=== PATIENT | male | born 1950 | race African-American/Black ===

== ENCOUNTER 2024-07-24 12:48 | Outpatient (AMB) | payer MEDICARE, SELFPAY ==
--- NOTE | 2024-07-24 12:59 | MHC.OFFVIS ---
Vital Signs 07/24/24 13:00 Height 5 ft 9 in Weight 164 lb BMI 24.2 BP 133/63 Blood Pressure Location Lt brachial Position Sitting Respiration 16 Pulse 102 H Pulse Source Pulse Oximeter Pulse Oximetry (%) 99 Oxygen Delivery Method Room Air Intake Visit Reasons: Chronic back pain/urgent per Dr Peter Allergies No Known Allergies Allergy (Verified 07/24/24 13:01) Medication List - Last Reconciled 07/24/24 by Harriet Braswell LPN cyanocobalamin (vitamin B-12) 1,000 mcg PO DAILY dulaglutide (Trulicity) mg subcut gabapentin 600 mg PO BID lisinopril-hydrochlorothiazide 20-25 mg 1 tab PO DAILY metformin 1,000 mg PO BID tamsulosin 0.4 mg PO BEDTIME HPI Comments Details: Milan is very nice and very pleasant 73 years old gentleman, 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 He also reports numbness in bilateral lower extremities. He reports that this pain is result of diabetes currently he reports his hemoglobin A1c number between 6 and 7, and yet his diagnose with diabetic polyneuropathy. She reports him some oral medications help his pain minimally to moderately his pain is 10/10 all day long without interruption. In terms of tissue damage he reports his pain as shooting, stabbing, sharp, hot burning, tingling, stinging, hurting, aching, radiating, piercing, cold, freezing sensation. He is currently taking metformin gabapentin tamsulosin and lisinopril HCTZ. In the past he had lower back pain spinal fusion surgery. He had 3 surgeries on the back starting from 2005 and going on to 2007 and 3rd surgery in 2018 by Cayla Grijalva. He reports that there is residual left lower extremity footdrop after the surgery he received in 2005. He reports significant lower back pain related to postlaminectomy syndrome as well. He had mg performed at [facility] and MRI in 2023. He reports multiple sessions at physical therapy with [facility] and none of those were helping his pain. He received multiple injections to address she has lower back pain with [facility] some of those injections were effective for several weeks. However now they fade ineffectiveness. His past medical history significant for hypertension prostate problems and diabetes. Past surgical history described as above. Past social history he is unemployed currently, he continues to consider himself at the work force. He denies smoking cigarettes drinking alcohol he drinks 2 cups of coffee a day and he denies recreational drugs. [facility] Social History Patient Tobacco Use Status: Never used Tobacco Review of Systems Const All systems reviewed & are unremarkable except as noted in HPI and below Card Reports no additional complaints Resp Reports no additional complaints GI Reports no additional complaints Reports as per HPI Musc Reports as per HPI Neuro Reports as per HPI Psych Reports no additional complaints Endo Reports as per HPI Physical Exam Vital Signs: Last Vital Signs Pulse 102 H 07/24/24 13:00 Resp 16 07/24/24 13:00 BP 133/63 07/24/24 13:00 Pulse Ox 99 07/24/24 13:00 Oxygen Delivery Method Room Air 07/24/24 13:00 BMI result Body Mass Index 24.2 Const General: no acute distress, well developed, alert and awake Orientation/consciousness: patient oriented x3 Resp Effort & Inspection: normal respiratory effort, able to speak in complete sentences, normal respiratory pattern, no audible wheezes, no cough, no grunting and not labored Cardio Other: No lower extremity edema Jugular venous distension: no JVD GI Inspection: Yes normal to inspection Back/Spine/Pelvis Other: On inspection there is a scar projection of L3, L4, L5 and probably S1 midline area the patient is back the scar is very well-healed. Skin Other: callused feet, dry skin bilateral lower extremities, reports numbness in bilateral lower extremities absence of the sensation, painful pins and needle sensation. Neuro General: patient oriented x3, gait normal, tone normal, moves all extremities and Normal light touch and pain sensation Motor exam (neuro): 5/5 motor strength present throughout Assessment & Plan Assessment & Plan (1) Diabetic polyneuropathy: Code(s): E11.42 - Type 2 diabetes mellitus with diabetic polyneuropathy Category: Medical (2) Postlaminectomy syndrome: Code(s): M96.1 - Postlaminectomy syndrome, not elsewhere classified Category: Medical (3) Chronic pain syndrome: Code(s): G89.4 - Chronic pain syndrome Category: Medical Plan I discussed with the patient administration of Nevro spinal cord stimulator. After that we will go for the trial. He would need to understand that because of the presence of the postlaminectomy syndrome it is not guaranteed that the spinal cord stimulation will help his pain in the back, it will be designed only to help pain in bilateral lower extremities. Nevertheless the desired outcome would be if both of the pains will be covered with 1 device. He needs to go for psychological evaluation 1st. After he will past psychological evaluation we will schedule him for the trial of Nevro SCS. Patient Instructions: I here by testify that I spent 45 minutes in conversation with this patient as well as planning his care and organizing this note. Coding Level of Care Code New Pt Level 4 (17679) Diagnoses Diabetic polyneuropathy E11.42 Postlaminectomy syndrome M96.1 Chronic pain syndrome G89.4
[2024-07-24 13:00] VITALS: BP 133/63; PULSE 102; RESP 16; O2SAT 99; BMI 24.2
--- OUTSIDE RECORDS SUMMARY | 2024-07-24 14:34 | XMS_ITS | Continuity of Care Document ---
Author Organization [facility] Address [address] [place] [address]- Care Team Providers Care Amortization Schedule Clerk Name Role Phone Skyla ORELLANA, Ben Primary Care Physician [place] [facility] [place] [facility] [address], [place] [address] Attending Physician: Admtr, Ar8 Admitting Physician: Admtr, Ar8 Referring Physician: Admtr, Ar8 Encounter Type: Triage Allergies, Adverse Reactions, Alerts No Known Allergies Immunizations Given and Recorded Vaccine Date Status Refusal Reason influenza virus vaccine, inactivated 1 04/24/24 Gi rm influenza virus vaccine, inactivated 2 05/10/23 Gi rm influenza virus vaccine, inactivated 05/15/20 Kevin rded influenza virus vaccine, inactivated 08/04/19 Kevin rded influenza virus vaccine, inactivated 04/30/18 Kevin rded influenza virus vaccine, inactivated 07/24/17 Kevin rded influenza virus vaccine, inactivated 05/13/15 Kevin rded influenza virus vaccine, inactivated 07/13/13 Kevin rded influenza virus vaccine, inactivated 3 05/20/09 Gi rm SARS-CoV-2 (COVID-19) mRNA-1273 vaccine 07/13/21 R ecorded SARS-CoV-2 (COVID-19) mRNA-1273 vaccine 01/22/21 R ecorded SARS-CoV-2 (COVID-19) mRNA-1273 vaccine 12/24/20 R ecorded pneumococcal 23-valent vaccine 07/28/17 Recorded pneumococcal 23-valent vaccine 4 05/20/09 Given pneumococcal 23-valent vaccine 05/19/03 Recorded pneumococcal 13-valent vaccine 03/08/16 Recorded tetanus/diphtheria/pertussis, acel(Tdap) 03/08/16 Recorded Zoster Vaccine Live 02/28/14 Recorded Rabies Immune Globulin, Human 07/04/13 Given rabies vaccine, human diploid cell 07/04/13 Given tetanus-diphtheria toxoids (Td) 07/04/13 Given 1Result Comment: [id number] given w/out incident 2Result Comment: [facility] [id number] 3Result Comment: lot number [id number] 4Result Comment: lot number [id number] Medications Blood Pressure Monitor Blood Pressure Monitor, See Instructions, # 1 each, Refills 0, Tot. Refills 0, Maintenance, DX Hypertension I10, 05/28/23 11:15:00 AM EST, Supply Start Date: 05/28/23 Status: Ordered Quantity: 1.0 Unit: each Repeat number: 1 FreeStyle Lite Strips FreeStyle Lite Strips, 0 Refills, Maintenance, 01/18/24 8:33:00 AM EDT Start Date: 01/18/24 Status: Ordered Repeat number: 1 gabapentin 600 mg oral tablet 1 tablet = 600 mg, By Mouth, 2 times a day, # 180 tablet, 1 Refills, Maintenance, 12/04/23 11:15:00 AM EDT, Tablet, [facility], Partial fill upon patient request if the prescription is for a schedule II opioid drug., 175.9, cm, 12/04/23 10:51:00 EDT, Height, 75, kg, 12/04/23 10:51 :00 EDT, Dry Weight Start Date: 12/04/23 Status: Ordered Quantity: 180.0 Unit: tablet Repeat number: 2 hydrochlorothiazide-lisinopril 25 mg-20 mg oral tablet 1 tablet, By Mouth, Daily, # 90 tablet, 1 Refills, Maintenance, 04/16/24 5:10:00 PM EDT, [facility], 90, TAKE ONE TABLET EVERY DAY, 175.9, cm, 04/02/24 14:15:00 EDT, Height, 75, kg, 12/04/23 10:51:00 EDT, Dry Weight Start Date: 04/16/24 Status: Ordered Quantity: 90.0 Unit: tablet Repeat number: 1 Lantus Solostar Pen 100 units/mL subcutaneous solution = 34 units, Subcutaneous Injection, 2 times a day, # 60 mL, 1 Refills, Maintenance, 05/10/23 1:40:00PM EST, Injection, [facility], Partial fill upon patient request if the prescription is for a schedule II opioid drug., 175, cm, 05/10/23 13:06:00 EST, Height, 79.9, kg, 239:30:00 EDT, Dry Weight Start Date: 05/10/23 Status: Ordered Quantity: 60.0 Unit: mL Repeat number: 2 metFORMIN 1000 mg oral tablet 1 tablet = 1,000 mg, By Mouth, 2 times a day, # 180 tablet, 1 Refills, Maintenance, 05/10/23 1:40:00PM EST, Tablet, [facility], Partial fill upon patient request if the prescription is for a schedule II opioid drug., 175, cm, 05/10/23 13:06:00 EST, Height, 79.9, kg, 01/11/23 9:30:00 EDT, Dry Weight Start Date: 05/10/23 Status: Ordered Quantity: 180.0 Unit: tablet Repeat number: 2 tamsulosin 0.4 mg oral capsule 1, capsule, By Mouth, Daily, # 90 capsule, Refills 1, Maintenance, 06/07/24 12:40:00 PM EST, Route to Pharmacy Electronically, [facility], 175.9, cm, 04/24/24 14:28:00 EDT, Height, 75, kg, 04/24/24 14:28:00 EDT, Dry Weight Start Date: 06/07/24 Status: Ordered Quantity: 90.0 Unit: capsule Repeat number: 1 TRUEplus Lancets 33 gauge TRUEplus Lancets 33 gauge, TEST BLOOD SUGAR TWICE DAILY AND NEEDED Start Date: 01/18/24 Status: Ordered Repeat number: 1 Trulicity Pen 1.5 mg/0.5 mL subcutaneous solution See Instructions, INJECT ONE PEN (=1.5MG) SUBCUTANEOUSLY ONCE A WEEK DIRECTED, # 6 mL, 0 Refills, Maintenance, 05/20/24 7:58:00 AM EST, [facility], 175.9, cm, 04/24/24 14:28:00 EDT, Height, 75, kg, 04/24/24 14:28:00 EDT, Dry Weight Start Date: 05/20/24 Status: Ordered Quantity: 6.0 Unit: mL Repeat number: 1 Vitamin B12 1000 mcg oral tablet 1 tablet = 1,000 mcg, By Mouth, Daily, # 90 tablet, 3 Refills, Maintenance, 05/10/23 1:40:00 PM EST,Tablet, [facility], Partial fill upon patient request if the prescription is for a schedule II opioid drug., 175, cm, 05/10/23 13:06:00 EST, Height, 79.9, kg, 01/11/23 9:30:00 EDT, Dry Weight Start Date: 05/10/23 Status: Ordered Quantity: 90.0 Unit: tablet Repeat number: 4 Vitamin D3 1000 intl units oral tablet 1 tablet = 25 mcg, By Mouth, Daily, # 90 tablet, 1 Refills, Maintenance, 05/10/23 1:40:00 PM EST, Tablet, [facility], Partial fill upon patient request if the prescription is for a schedule II opioid drug., 175, cm, 05/10/23 13:06:00 EST, Height, 79.9, kg, 01/11/23 9:30:00 EDT, Dry Weight Start Date: 05/10/23 Status: Ordered Quantity: 90.0 Unit: tablet Repeat number: 2 Problem List Condition Confirmation Course Effective Dates Status Health St atus Informant Diabetes mellitus with neuropathy Confirmed Active Glaucoma Confirmed Active Hypertension Confirmed Active Low back pain Confirmed Active Neuropathy Confirmed Active Elevated PSA; did not have biopsy as of 08/26 Confirmed Active Social History Social History Type Response Smoking Status Never smoker; Tobacc o user in household: No entered on: 02/27/17 Sex Male Sex Representation Male (finding) Radiology * Event Display: MRI Spine, Non- Authored Date: Patient Care team information Care Team Personnel Name: Ben Crum MD Position: [facility] Physician - Primary Care Member Role: PCP Address: [address] [place] [address] Telecom: Name: Quique Hermosillo RN Position: [facility] RN Member Role: Primary Care Nurse Care Team Related Persons Name: NO, ONE Name: UNKNOWN, TOBY Insurance Providers Guarantor name: [facility] [facility] Information #: 1 Payer: NA Member Number: NA Policy Number: NA Group Number: NA
--- OUTSIDE RECORDS SUMMARY | 2024-07-24 14:34 | XMS_ITS | Continuity of Care Document ---
Author Organization [facility] Address [address] [place] [address]- Care Team Providers Care Stacker Name Role Phone Ben Crum MD Primary Care Physician [place] [facility] [place]/03/24 [facility] [address] [place], [place] [address] Attending Physician: Ben Crum MD Encounter Type: Pre Office Visit Allergies, Adverse Reactions, Alerts No Known Allergies [...] influenza virus vaccine, inactivated 3 05/20/09 Gi mr SARS-CoV-2 (COVID-19) mRNA-1273 vaccine 07/13/21 R ecorded [...] tetanus-diphtheria toxoids (Td) 07/04/13 Given 1Result Comment: [id number] given w/out incident 2Result Comment: [facility] [id number] 3Result Comment: lot number [id number] 4Result Comment: lot number [id number] Medications Blood [...] Refills, Maintenance, 12/04/23 11:15:00 AM EDT, Tablet, [facility], Partial fill upon [...] 1 Refills, Maintenance, 04/16/24 5:10:00 PM EDT, [facility], 90, TAKE ONE TABLET EVERY DAY, 175.9, cm, 04/02/24 14:15:00 EDT, Height, 75, kg, 12/04/23 10:51:00 EDT, Dry Weight Start Date: 04/16/24 Status: Ordered Quantity: 90.0 Unit: tablet Repeat number: 1 Lantus Solostar Pen 100 units/mL subcutaneous solution = 34 units, Subcutaneous Injection, 2 times a day, # 60 mL, 1 Refills, Maintenance, 05/10/23 1:40:00PM EST, Injection, [facility], Partial fill upon patient request if the prescription is for a schedule II opioid drug., 175, cm, 05/10/23 13:06:00 EST, Height, 79.9, kg, :30:00 EDT, Dry Weight Start Date: 05/10/23 Status: Ordered Quantity: 60.0 Unit: mL Repeat number: 2 metFORMIN 1000 mg oral tablet 1 tablet = 1,000 mg, By Mouth, 2 times a day, # 180 tablet, 1 Refills, Maintenance, 05/10/23 1:40:00PM EST, Tablet, [facility], Partial fill upon [...] 12:40:00 PM EST, Route to Pharmacy Electronically, [facility], 175.9, cm, 04/24/24 [...] 0 Refills, Maintenance, 05/20/24 7:58:00 AM EST, [facility], 175.9, cm, 04/24/24 14:28:00 EDT, Height, 75, kg, 04/24/24 14:28:00 EDT, Dry Weight Start Date: 05/20/24 Status: Ordered Quantity: 6.0 Unit: mL Repeat number: 1 Vitamin B12 1000 mcg oral tablet 1 tablet = 1,000 mcg, By Mouth, Daily, # 90 tablet, 3 Refills, Maintenance, 05/10/23 1:40:00 PM EST,Tablet, [facility], Partial fill upon [...] Refills, Maintenance, 05/10/23 1:40:00 PM EST, Tablet, [facility], Partial fill upon [...] 02/27/17 Sex Male Sex Representation Male (finding) Patient Care team information Care Team Personnel Name: Ben Crum MD Position: [facility] Physician - Primary Care Member Role: PCP Address: [address] [place] [address] Telecom: Name: Quique Hermosillo RN Position: S RN Member Role: Primary Care Nurse Care Team Related Persons Name: NO, ONE Name: UNKNOWN, TOBY Insurance Providers Guarantor name: [facility] Health Plan Information #: 1 Payer: SANTI Member Number: [id number] Policy Number: SANTI Group Number: [id number] Health Plan Information #: 2 Payer: [employer] MED[employer] ADV HMO Member Number: [id number] Policy Number: SANTI Group Number: NA
== END 2024-07-24 13:39 | disposition home or self-care (01) ==
PROVIDERS: PCP Internal Medicine; Referring Provider Internal Medicine; Visit Provider Anesthesiology
DX: E11.42 Type 2 diabetes mellitus with diabetic polyneuropathy (principal); M96.1 Postlaminectomy syndrome, not elsewhere classified; G89.4 Chronic pain syndrome
CPT/HCPCS: 99204

== ENCOUNTER → 2024-07-24 12:48 | Outpatient (BNVA) | payer MEDICARE, SELFPAY | PROVIDERS: PCP Internal Medicine; Referring Provider Internal Medicine; Visit Provider Anesthesiology | DX: M96.1 Postlaminectomy syndrome, not elsewhere classified (principal); G89.4 Chronic pain syndrome; E11.42 Type 2 diabetes mellitus with diabetic polyneuropathy | CPT/HCPCS: 99202 ==

== ENCOUNTER 2024-08-12 13:51 | Outpatient (AMB) | payer MEDICARE, SELFPAY ==
--- NOTE | 2024-08-12 13:53 | MHC.OFFVIS ---
Vital Signs 08/12/24 13:54 Height 5 ft 9 in Weight 160 lb BMI 23.6 BP 133/86 Blood Pressure Location Lt brachial Position Sitting Respiration 16 Pulse 106 H Pulse Source Pulse Oximeter Pulse Oximetry (%) 98 Oxygen Delivery Method Room Air Intake Visit Reasons: 3 Weeks Follow up Top And Seat Cover Fitter Required: No Allergies No Known Allergies Allergy (Verified 08/12/24 13:56) Medication List - Last Reconciled 08/12/24 by Harriet Braswell LPN cyanocobalamin (vitamin B-12) 1,000 mcg PO DAILY dulaglutide (Trulicity) mg subcut gabapentin 600 mg PO BID lisinopril-hydrochlorothiazide 20-25 mg 1 tab PO DAILY metformin 1,000 mg PO BID tamsulosin 0.4 mg PO BEDTIME HPI Comments Details: Milan is back in my office to discuss spinal cord stimulator. We received [employer] point evaluate with approval to perform the procedure. I will schedule him for the trial of Nevro SCS. We discussed postoperative limitations, we discussed the procedure. Patient asked multiple questions. Those were answered to his satisfaction. I will schedule him for trial of Nevro SCS. 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 He also reports numbness in bilateral lower extremities. He reports that this pain is result of diabetes currently he reports his hemoglobin A1c number between 6 and 7, and yet his diagnose with diabetic polyneuropathy. She reports him some oral medications help his pain minimally to moderately his pain is 10/10 all day long without interruption. currently taking metformin gabapentin tamsulosin and lisinopril HCTZ. In the past he had lower back pain spinal fusion surgery. He had 3 surgeries on the back starting from 2005 and going on to 2007 and 3rd surgery in 2018 by Cayla Grijalva. He reports that there is residual left lower extremity footdrop after the surgery he received in 2005. He reports significant lower back pain related to postlaminectomy syndrome as well. He had mg performed at [facility] and MRI in 2023. He reports multiple sessions at physical therapy with [facility] and none of those were helping his pain. [facility] Social History Patient Tobacco Use Status: Never used Tobacco Review of Systems Const All systems reviewed & are unremarkable except as noted in HPI and below Physical Exam Vital Signs: Last Vital Signs Pulse 106 H 08/12/24 13:54 Resp 16 08/12/24 13:54 BP 133/86 08/12/24 13:54 Pulse Ox 98 08/12/24 13:54 Oxygen Delivery Method Room Air 08/12/24 13:54 BMI result Body Mass Index 23.6 Const General: no acute distress, well developed, alert and awake Orientation/consciousness: patient oriented x3 Resp Effort & Inspection: normal respiratory effort, able to speak in complete sentences, normal respiratory pattern, no audible wheezes, no cough, no grunting and not labored Cardio Other: No lower extremity edema Jugular venous distension: no JVD GI Inspection: Yes normal to inspection Back/Spine/Pelvis Other: On inspection there is a scar projection of L3, L4, L5 and probably S1 midline area the patient is back the scar is very well-healed. Skin Other: callused feet, dry skin bilateral lower extremities, reports numbness in bilateral lower extremities absence of the sensation, painful pins and needle sensation. Neuro General: patient oriented x3, gait normal, tone normal, moves all extremities and Normal light touch and pain sensation Motor exam (neuro): 5/5 motor strength present throughout Assessment & Plan Assessment & Plan (1) Diabetic polyneuropathy: Code(s): E11.42 - Type 2 diabetes mellitus with diabetic polyneuropathy Category: Medical (2) Postlaminectomy syndrome: Code(s): M96.1 - Postlaminectomy syndrome, not elsewhere classified Category: Medical (3) Chronic pain syndrome: Code(s): G89.4 - Chronic pain syndrome Category: Medical Plan [facility] psychology approved him for neuromodulation. I will schedule him for a trial Nevro spinal cord stimulator. Risks and benefits were explained to the patient. He was asking multiple questions. Hygiene limitations were explained to the patient. Ability to perform household duties and work were explained to the patient. I will see the patient for the trial. Coding Level of Care Code Est Pt Level 3 (94279) Diagnoses Diabetic polyneuropathy E11.42 Postlaminectomy syndrome M96.1 Chronic pain syndrome G89.4
[2024-08-12 13:54] VITALS: BP 133/86; PULSE 106; RESP 16; O2SAT 98; BMI 23.6
== END 2024-08-12 14:15 | disposition home or self-care (01) ==
PROVIDERS: PCP Internal Medicine; Visit Provider Anesthesiology
DX: E11.42 Type 2 diabetes mellitus with diabetic polyneuropathy (principal); M96.1 Postlaminectomy syndrome, not elsewhere classified; G89.4 Chronic pain syndrome
CPT/HCPCS: 99213

== ENCOUNTER → 2024-08-12 13:51 | Outpatient (BNVA) | payer MEDICARE, SELFPAY | PROVIDERS: PCP Internal Medicine; Visit Provider Anesthesiology | DX: E11.42 Type 2 diabetes mellitus with diabetic polyneuropathy (principal); M96.1 Postlaminectomy syndrome, not elsewhere classified; G89.4 Chronic pain syndrome | CPT/HCPCS: 99212 ==

== ENCOUNTER 2024-10-25 07:05 | Day surgery (SDC) | payer MEDICARE, SELFPAY ==
[2024-10-23 08:51] VITALS: BMI 23.6
--- OUTSIDE RECORDS SUMMARY | 2024-10-23 12:42 | XMS_ITS | Encounter Summary ---
Author Organization [facility] Address [address] [place] [address] Care Team Providers Care Automobile Repair Service Estimator Name Role Phone Ben Crum MD Primary Care Provider [phone] Encounter Details Date Type Department Care Team (Late Contact Info) Description 05/23/2024 Lab Requisition [facility] - Main Lab [address] [facility] [place] [address] Alessio Hernandez MD [address] [place] [id number] Social History Tobacco Use Types Packs/Day Years Used Date Smoking Tobacco: Never Smokeless Tobacco: Never Alcohol Use Standard Drinks/Week Comments No 0 (1 standard drink = 0.6 oz pur e alcohol) Sex and Gender Information Value Date Recorded Sex Assigned at Not on file Legal Sex Male 10:14 AM EST Gender Identity Not on file Sexual Orientation Not on file documented as of this encounter Plan of Treatment Upcoming Encounters Date Type Department Care Team (Late Contact Info) Description 11/22/2024 7:45 AM EDT Office Visit Adult Medicine [facility] [place] [place] [address] [place] [phone] Jazmín Espinal MD [address] [place], [place] documented as of this encounter Visit Diagnoses Not on filedocumented in this encounter Care Teams Automobile Repair Service Estimator Relationship Specialty Start Date End Date Ben Crum MD [address] [place] [id number] PCP - General Internal Medicine 09/12/24 documented as of this encounter
--- OUTSIDE RECORDS SUMMARY | 2024-10-23 12:42 | XMS_ITS | Clinical Summary ---
Author Organization [address] Address [address] [place] [phone] Phone Care Team Providers Care Paperhanger Contractor Name Role Phone Ben Crum MD Primary Care Provider [phone] Allergies No known active allergies Medications blood sugar diagnostic (FreeStyle Lite Strips) test strip TEST BLOOD SUGAR TWICE DAILY 05/24/20 Active lancets 33 gauge misc TEST BLOOD SUGAR TWICE DAILY AND NEEDED 05/24/20 23 Active insulin glargine (Lantus Solostar U-100 Insulin) 100 unit/mL (3 mL) injection pen INJECT 34 UNITS SUBCUTANEOUSLY TWICE DAILY 12/07/19 23 Active metFORMIN (GLUCOPHAGE) 1,000 mg tablet Take 1 tablet (1,000 mg total) by mouth 2 (two) times a day with meals. 07/25/19 23 Active cyanocobalamin (VITAMIN B-12) 1,000 mcg tablet Take 1 tablet (1,000 mcg total) by mouth 1 (one) time each day. 07/13/19 23 Active lisinopril-hyd roCHLOROthiazi de (PRINZIDE,ZEST ORETIC) 20-12.5 mg per tablet Take 1 tablet by mouth 1 (one) time each day. 07/11/19 23 Active blood-glucose meter kit Use bid and prn dx: E11.49 07/01/20 21 Active gabapentin (NEURONTIN) 600 mg tablet Take 1 tablet (600 mg total) by mouth 2 (two) times a day. 60 each 2 05/15/20 24 Active pen needle, diabetic (UltiCare Pen Needle) 32 gauge x 5/32 needle Inject under the skin at bedtime. 100 each 1 05/15/20 24 Active tamsulosin (FLOMAX) 0.4 mg 24 hr capsule Take 1 capsule (0.4 mg total) by mouth 1 (one) time each day with breakfast. Capsules should be taken 30 minutes following the same meal each day. Active acetaminophen (TYLENOL 8 HOUR) 650 mg 8 hr tablet Take 1 Tablet by mouth every 8 hours as needed for Pain for up to 14 days. 03/28/20 23 025 Discontin ued(Thera py completed ) ibuprofen (ADVIL,MOTRIN) 800 mg tablet Take 1 Tablet by mouth 2 times daily for 14 days. 03/28/20 025 Discontin ued(Thera py completed ) diclofenac (VOLTAREN) 1 % topical gel Apply 2 g topically 4 times daily as needed (right wrist pain). 08/15/19 025 Discontin ued(Thera py completed ) cholecalcifero l (VITAMIN D-3) 50 mcg (2,000 unit) capsule Take 1 capsule (2,000 Units total) by mouth 1 (one) time each day. 07/13/19 025 Discontin ued(Thera py completed ) Active Problems Problem Noted Date Diagnosed Date Prostate cancer ([facility] V24, [facility] V28) 10/10 Cancer Staging:Clinical:Stage IIIA(cT2c, cN0, cM0, PSA: 20, Grade Group: 3) - Signed by Ida Novoa MD on 10/10/2024 Vitamin B 12 deficiency 04/05/2024 High prostate specific antigen (PSA) 04/05/2024 Neuropathy 04/05/2024 Foot drop, bilateral 04/05/2024 Nontraumatic subluxation of extensor tendon at metacarpophalangeal joint of right hand 05/10/2023 Left hand weakness 12/14/2022 Numbness and tingling 12/14/2022 Vitamin D deficiency 10/21/2021 Ulnar neuropathy at elbow, right 10/10/2018 Ulnar neuropathy at elbow, left 10/10/2018 Radial tunnel syndrome, left 10/10/2018 Right carpal tunnel syndrome 07/12/2018 Overview (04/05/2024): left Osteoarthritis 07/12/2018 Overview (04/05/2024): Spine Polyneuropathy 07/12/2018 Low back pain 01/22/2018 Microalbuminuria 01/30/2017 Diabetes mellitus with neuro uday ([facility] V24, [facility] V28) 11/06/2013 Glaucoma 11/06/2013 Hypertension 10/09/2013 Encounters Date Type Department Care Team Description 10/15/2024 Telephone [facility] Radiation Oncology [address] [place] [phone] Karo Begum MA 10/10/2024 1:19 PM EDT - 10/10/2024 11:59 PM EDT Hospital Encounter [facility] Radiation Oncology [address] [place] [phone] Discharge Disposition: Home or Self Care 10/10/2024 1:15 PM EDT - 10/10/2024 11:59 PM EDT Hospital Encounter [facility] Radiation Oncology [address] [place] [phone] Ida Novoa MD Prostate cancer ([facility] V24, [facility] V28) Discharge Disposition: Home or Self Care 10/03/2024 Telephone [facility] Radiation Oncology [address] [place] [phone] Liliya Ponce MA 09/12/2024 Telephone [facility] Radiation Oncology [address] [place] [phone] Liliya Ponce MD 08/16/2024 11:00 AM EST - 08/16/2024 11:59 PM EST Hospital Encounter [facility] PET Scan [address] [place] [phone] Malignant neoplasm of prostate ([facility] V24, [facility] V28) Discharge Disposition: Home or Self Care from Last 3 Months Immunizations Name Administration Dates Next Due Influenza trivalent, 0.5mL ( Fluzone High-dose) 65yo and older 05/15/2020 Influenza trivalent, with pr eservative (Fluzone; Afluria) 6mo and older 05/13/2015 Influenza, Unspecified 05/10/2023,2019,04/30/2018,07/24,04/02/2014 Moderna SARS-CoV-2 COVID-19, mRNA, LNP-S, preservative free 07/13/2021,01/22/2021,12/24/2020 Pneumococcal conjugate 13 va lent (Prevnar 13, PCV13) 2mo and older 03/08/2016 Pneumococcal polysaccharide 23 valent (Pneumovax 23) 2yo and older 07/28/2017,05/19/2003 Pneumococcal, Unspecified 05/20/2009 Rabies, Unspecified 07/04/2013 Td Tetanus diptheria (Tdvax) 7yo and older 07/04/2013 Tdap Tetanus diptheria acell ular pertussis (Boostrix; Adacel) 7yo and older 03/08/2016 Zoster Live 02/28/2014 Surgical History Surgery Date Site/Laterality Comments BACK SURGERY 08/2005 PROCEDURE: HISTORICAL BACK SURGERY; COMMENT: Discectomy L4-L5 BACK SURGERY 05/07/2018 PROCEDURE: HISTORICAL BACK SURGERY; COMMENT: Exploration and revision of fusion L4-5; L3-4 decompression; L3-4 and right L4-5 posterior lateral arthrodesis; L3-L5 segmental fixation - Dr. Irizarry BACK SURGERY 02/06/2017 PROCEDURE: HISTORICAL BACK SURGERY; COMMENT: Laminectomy L4-L5, Laminoforaminotomy L3-L4 left, Posterior instumentation L4-L5, Arthrodesis Medical History Medical History Date Comments HTN (hypertension) 10/09/2013 DX:HTN (hyper tension) Hyperlipidemia DX:Hyperlipidemi a Glaucoma 11/06/2013 DX:Glaucoma Osteoarthritis 07/12/2018 DX:Osteoarthriti s; COMMENT: Spine DM (diabetes mellitus), type 2 with neurological complications ([facility] V24, [facility] V28) 11/06/2013 DX:DM (diabetes mellitus), t ype 2 with neurological complications ([facility]) Microalbuminuria 01/30/2017 DX:Microalbumin uria Polyneuropathy 07/12/2018 DX:Polyneuropath y Carpal tunnel syndrome 07/12/2018 DX:Carpal tunnel syndrome; COMMENT: left Vitamin B 12 deficiency DX:Vitam in B 12 deficiency Vitamin D deficiency DX:Vitamin D deficiency Cancer ([facility] V24, [facility] V28) Prostate cancer ([facility] V24 , [facility] V28) Family History Medical History Relation Name Comments No Known Problems Brother No Known Problems Father No Known Problems Maternal Grandfather No Known Problems Maternal Grandmother No Known Problems Mother No Known Problems Paternal Grandfather No Known Problems Paternal Grandmother Diabetes Sister Autoimmune disease Neg Hx Breast cancer Neg Hx Colon cancer Neg Hx Coronary artery disease Neg Hx Heart attack Neg Hx Heart failure Neg Hx Hyperlipidemia Neg Hx Hypertension Neg Hx Mental illness Neg Hx Prostate cancer Neg Hx Sleep apnea Neg Hx Thyroid disease Neg Hx Relation Name Status Comments Brother Father Maternal Grandfather Maternal Grandmother Mother Paternal Grandfather Paternal Grandmother Sister Social History Tobacco Use Types Packs/Day Years Used Date Smoking Tobacco: Never Smokeless Tobacco: Never Alcohol Use Standard Drinks/Week Comments Yes 1 (1 standard drink = 0.6 oz pur e alcohol) occasional Sex and Gender Information Value Date Recorded Sex Assigned at Not on file Legal Sex Male 10:14 AM EST Gender Identity Not on file Sexual Orientation Not on file 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 Not on file Not on f ile Obstetrics History Last Filed Vital Signs Vital Sign Reading Time Taken Comments Blood Pressure 118/68 10/10/2024 2:10 PM EDT Pulse 70 10/10/2024 2:10 PM EDT Temperature 36.1 ??C (96.9 ??F) 10/10/2024 2:10 PM ED T Respiratory Rate 16 10/10/2024 2:10 PM EDT Oxygen Saturation 100% 10/10/2024 2:10 PM EDT Inhaled Oxygen Concentration - - Weight 75.5 kg (166 lb 6.4 oz) 10/10/2024 2:10 P M EDT Height 175.3 cm (5' 9 ) 10/10/2024 2:10 PM EDT Body Mass Index 24.57 10/10/2024 2:10 PM EDT Plan of Treatment Upcoming Encounters Date Type Department Care Team ([facility] st Contact Info) Description 11/22/2024 7:45 AM EDT Office Visit Adult Medicine [address] [place] [phone] Jazmín Espinal MD [address] [facility] [address] Health Maintenance Due Date Last Done Comments Diabetes: Annual Foot Exam 1960 Diabetes: Annual Retina Eye Exam 1960 Zoster Vaccines (1 of 2) 04/25/2014 02/28/2014 Colorectal Cancer Screening: Stool Based Tests (FOBT/FIT) 06/06/2022 Depression Screening 06/06/2022 Falls Risk Assessment 06/06/2022 Social Influencers of Health Screening 06/06/2022 Diabetes: Annual Urine Albumin-Creatinine Ratio (uACR) 06/09/2022 05/15/2020 Diabetes: Annual GFR (Glomerular Filtration Rate) 10/19/2022 10/19/2021 Hypertension/CHF/CAD Annual BMP Blood Test 10/19/2022 10/19/2021 Diabetes: Blood Sugar Control Test (HGBA1C) 01/10/2023 07/13/2022 COVID-19 Vaccine ( season) 2024 07/13/2021, 01/22/2021, 12/24/2020 RSV Immunization Adult Patients (1 - 1-dose 75+ series) 05/15/2025 Postponed from 2024 (Patient Refused) DTaP,Tdap,and Td Vaccines (3 - Td or Tdap) 03/08/2026 03/08/2016, 07/04/2013 Cholesterol Screening (Lipid Panel) 10/19/2026 10/19/2021 Hepatitis C Screening Completed 10/25/2013 Pneumococcal Vaccine: 50+ Years Completed 07/28/2017, 03/08/2016, 05/20/2009, Additional history exists Influenza Vaccine Completed 04/24/2024, , 05/15/2020, Additional history exists HIB Vaccines Aged Out No longer eligi ble based on patient's age to complete this topic HPV Vaccines Aged Out No longer eligi ble based on patient's age to complete this topic Hepatitis A Vaccines Aged Out No long er eligible based on patient's age to complete this topic Hepatitis B Vaccines Aged Out No long er eligible based on patient's age to complete this topic IPV Vaccines Aged Out No longer eligi ble based on patient's age to complete this topic MMR Vaccines Aged Out No longer eligi ble based on patient's age to complete this topic Meningococcal ACWY Vaccine Aged Out N o longer eligible based on patient's age to complete this topic Meningococcal B Vaccine Aged Out No l onger eligible based on patient's age to complete this topic RSV Immunization Patients Under 20 months Aged Out No longer eligible based on patient's age to complete this topic Varicella Vaccines Aged Out No longer eligible based on patient's age to complete this topic Procedures Procedure Name Priority Date/Time Associated Diagnosis Comments PROSTATE SPECIFIC ANTIGEN DIAGNOSTIC Routine 10/10/2024 3:35 PM EDT Prostate cancer ([facility] V24, [facility] V28) PET CT SKULL TO MID THIGH INITIAL Routine 08/16/2024 12:20 PM EST Malignant neoplasm of prostate ([facility] V24, [facility] V28) HEMOGLOBIN A1C Routine 07/13/2022 ANNUAL BMP BLOOD TEST Routine 10/19/2021 LIPID PANEL Routine 10/19/2021 URINE ALBUMIN CREATININE RATIO Routine 05/15/2020 HEPATITIS C SCREENING Routine 10/25/2013 from Last 3 Months or Most Recently Relevant to Health Maintenance Results * (ABNORMAL) Prostate specific antigen diagnostic (10/10/2024 3:35 PM EDT) PSA 16.79(H) 0.00 - 4.00 ng/mL LAB CHEMISTRY METHOD 10/10/2024 6:09 PM EDT [facility] Blood Venous blood specimen / Unknown Venipuncture / Unknown 10/10/2024 3:35 PM EDT 10/10/2024 4:39 PM EDT Narrative [facility] - 10/10/2024 6:09 PM EDT The Siemens Advia Centaur Chemiluminescent Immunoassay is used. Results obtained with different assay methods or kits cannot be used interchangeably. Results cannot be interpreted as absolute evidence of the presence or absence of malignant disease. us Ida Novoa MD LAB BLOOD ORDERABLES Final R esult [facility] [address] [place] [address], * PET CT Skull to Mid Thigh Initial (08/16/2024 12:20 PM EST) Anatomical Region Laterality Modality Body Radiographic Zoey ging 08/20/2024 6:16 AM EST Impressions 08/20/2024 7:06 AM EST 1. ??Focal activity within the prostate gland in keeping with biopsy-proven prostate carcinoma 2. ??Nonspecific activity in the left retroperitoneum favor to represent vessels/ganglion and less likely nonenlarged left-sided retroperitoneal lymph node -------- FINAL REPORT -------- Dictated By: Kristine Delacruz Dictated Date: 08/20/2024 06:16 ET Assigned Physician: Kristine Delacruz Reviewed and Electronically Signed By: Kristine Delacruz Signed Date: 08/20/2024 07:06 ET Workstation ID: [id number] Transcribed By: Self Edit Transcribed Date: 08/20/2024 06:16 ET Narrative 08/20/2024 7:06 AM EST HISTORY: Prostate carcinoma, initial treatment. PRIOR IMAGING STUDIES: None RADIOPHARMACEUTICAL: 9.6 mCi F-18 piflufolastat IV INJECTION SITE: Left antecubital INJECTION TIME TO SCAN TIME: 66 min PROCEDURE: Routine body PET-CT imaging performed from the base of the skull to the upper thighs and reconstructed in axial, coronal, sagittal planes at the computer workstation with fused data from both the PET imaging study and attenuation correction CT study. Please note, CT imaging utilized strictly for attenuation correction and anatomic localization: CT not designed to produce and cannot replace ubcaj-iz-tgv-art true diagnostic CT examination with specific protocols. ??Standardized uptake values (SUV) normalized to patient body weight and indicate the highest active concentration (SUV max) in a given disease site. DLP: ??436 mGy-cm IMAGING FINDINGS: Reference Values SUV Max: Parotid: 31.6 Blood Pool: ??2.1 Liver: ??5.1 Expected pattern of physiological activity noted. HEAD AND NECK: No abnormal activity. THORAX: No abnormal activity. Dependent changes at the lung bases. ??Coronary artery calcifications with trace pericardial effusion. ABDOMEN/PELVIS: Activity within the prostate gland (eccentric to the left) SUV max 21.7. Nonspecific activity within the left retroperitoneum corresponding to a tubular structure measuring approximately 6 mm SUV max 3.4; favor to represent a vessel/ganglion and less likely nonenlarged left-sided retroperitoneal lymph node. ??Nonenlarged inguinal lymph nodes SUV max 2.6 on the left and 2.3 on the right. Low-attenuation lesions in the left kidney without significant activity. MUSCULOSKELETAL: No abnormal activity. ??Lumbar spinal hardware. Procedure Note Kristine Delacruz MD - 08/20/2024 HISTORY: Prostate carcinoma, initial treatment. PRIOR IMAGING STUDIES: None RADIOPHARMACEUTICAL: 9.6 mCi F-18 piflufolastat IV INJECTION SITE: Left antecubital INJECTION TIME TO SCAN TIME: 66 min PROCEDURE: Routine body PET-CT imaging performed from the base of the skull to theupper thighs and reconstructed in axial, coronal, sagittal planes at theWevebob workstation with fused data from both the PET imaging study andattenuation correction CT study. Please note, CT imaging utilized strictlyfor attenuation correction and anatomic localization: CT not designed toproduce and cannot replace kuxxd-gt-kje-art true diagnostic CT examinationwith specific protocols. Standardized uptake values (SUV) normalized topatient body weight and indicate the highest active concentration (SUVmax) in a given disease site. DLP: 436 mGy-cm IMAGING FINDINGS: Reference Values SUV Max: Parotid: 31.6 Blood Pool: 2.1 Liver: 5.1 Expected pattern of physiological activity noted. HEAD AND NECK: No abnormal activity. THORAX: No abnormal activity. Dependent changes at the lung bases. Coronary artery calcifications withtrace pericardial effusion. ABDOMEN/PELVIS: Activity within the prostate gland (eccentric to the left)SUV max 21.7. Nonspecific activity within the left retroperitoneum corresponding to atubular structure measuring approximately 6 mm SUV max 3.4; favor torepresent a vessel/ganglion and less likely nonenlarged left-sidedretroperitoneal lymph node. Nonenlarged inguinal lymph nodes SUV max 2.6on the left and 2.3 on the right. Low-attenuation lesions in the left kidney without significant activity. MUSCULOSKELETAL: No abnormal activity. Lumbar spinal hardware. IMPRESSION: 1. Focal activity within the prostate gland in keeping with biopsy- provenprostate carcinoma 2. Nonspecific activity in the left retroperitoneum favor to representvessels/ganglion and less likely nonenlarged left-sided retroperitoneallymph node -------- FINAL REPORT -------- Dictated By: Kristine Delacruz Dictated Date: 08/20/2024 06:16 ET Assigned Physician: Kristine Delacruz Reviewed and Electronically Signed By: Kristine Delacruz Signed Date: 08/20/2024 07:06 ET Workstation ID: [id number] Transcribed By: Self Edit Transcribed Date: 08/20/2024 06:16 ET Result [facility] John Tamayo MD IMG NM PROCEDURES Final Result * (ABNORMAL) Hemoglobin A1c (07/13/2022) [facility] Hemoglobin A1C 7.0(A) <=6.5 % Blood Venous blood specimen / Unknown Result [facility] Historical Provider LAB BLOOD ORDERABLES Deirdre l Result * Annual BMP Blood Test (10/19/2021) Pathologist [facility] Annual BMP Blood Test abstracted Result [facility] Provider HEALTH MAINTENANCE Final Result * (ABNORMAL) Lipid panel (10/19/2021) [facility] LDL/HDL Ratio 3 0 - 4 Triglycerides 50 0 - 150 mg/dL Cholesterol 186 0 - 200 mg/dL HDL 66 >=40 mg/dL LDL Cholesterol 110(A) 0 - 100 mg/dL Blood Venous blood specimen / Unknown Result [facility] Historical Provider LAB BLOOD ORDERABLES Deirdre l Result * Urine Albumin Creatinine Ratio (05/15/2020) Urine Albumin Creatinine Ratio abstracted us Historical Provider HEALTH MAINTENANCE Final Result * Hepatitis C Screening (10/25/2013) Hepatitis C Screening abstracted us Historical Provider HEALTH MAINTENANCE Final Result from Last 3 Months or Most Recently Relevant to Health Maintenance Insurance MEDICAID - [place] Care Teams Paperhanger Contractor Relationship Specialty Start Date End Date Ben Crum MD [facility] [place] [address] PCP - General Internal Medicine 09/12/24
--- OUTSIDE RECORDS SUMMARY | 2024-10-23 12:42 | XMS_ITS | Clinical Summary ---
Author Organization [facility] Address [address] [place] [address] Care Team Providers Care Chemical Equipment Sales Engineer Name Role Phone Ari Yates MD Primary Care Provider Unavailab le Allergies No known active allergies Medications Medication Sig Dispensed Refills Start Date End Date Status lisinopril-hydroCHLORO thiazide (PRINZIDE,ZESTORETIC) tablet 20-12.5 mg Take 1 tablet by mouth. 0 06/21/2018 Active metFORMIN (GLUCOPHAGE) tablet 1000 mg Take 1,000 mg by mouth. 0 09/20/2018 Active pregabalin (LYRICA) 75 MG capsule Take 75 mg by mouth. 0 08/21/2018 Active amLODIPine (NORVASC) tablet 10 mg Take 10 mg by mouth daily. 1 10/08/2018 Active Active Problems Problem Noted Date Diagnosed Date Ulnar neuropathy at elbow, left 10/10/2018 Radial tunnel syndrome, left 10/10/2018 Left carpal tunnel syndrome 10/10/2018 Ulnar neuropathy at elbow, right 10/10/2018 Right carpal tunnel syndrome 10/10/2018 Social History Tobacco Use Types Packs/Day Years Used Date Smoking Tobacco: Never Smokeless Tobacco: Never Alcohol Use Standard Drinks/Week Comments No 0 (1 standard drink = 0.6 oz pur e alcohol) Sex and Gender Information Value Date Recorded Sex Assigned at Not on file Gender Identity Not on file Sexual Orientation Not on file Job Start Date Occupation Industry Not on file Not on file Not on file Last Filed Vital Signs Vital Sign Reading Time Taken Comments Blood Pressure - - Pulse - - Temperature - - Respiratory Rate - - Oxygen Saturation - - Inhaled Oxygen Concentration - - Weight 67.1 kg (148 lb) 10/10/2018 10:14 AM EDT Height 175.3 cm (5' 9 ) 10/10/2018 10:14 AM EDT Body Mass Index 21.86 10/10/2018 10:14 AM EDT Plan of Treatment Health Maintenance Due Date Last Done Comments Hepatitis C Screening 1950 COVID-19 Vaccine (#1) 02/09/1951 Depression Screening 1961 Preventative Health Evaluation 1967 Colon Cancer Screening (Colonoscopy) 1994 Shingrix-Zoster Vaccine (1 o f 2) 1999 Fall Risk Assessment 2014 Influenza Vaccine (#1) 2024 05/13/2015 RSV Adult > 60+ Yrs or (1 - 1-dose 75+ series) 2024 DTap / Tdap / Td (2 - Td or Tdap) 03/08/2026 03/08/2016 Pneumococcal Vaccine Completed 07/28/2017, 03/08/2016, 05/19/2003 Hepatitis B Vaccines Aged Out No long er eligible based on patient's age to complete this topic RSV Ped < 20 months Aged Out No longe r eligible based on patient's age to complete this topic Care Teams Chemical Equipment Sales Engineer Relationship Specialty Start Date End Date Ari Yates MD PCP - General Internal Medicine 07/09/18
--- OUTSIDE RECORDS SUMMARY | 2024-10-23 12:42 | XMS_ITS | Encounter Summary ---
Author Organization [facility] Address [address] [place] [address] Care Team Providers Care Arch Pad Cementer Name Role Phone Ben Crum MD Primary Care Provider [phone] Encounter Details Date Type Department Care Team (Late Contact Info) Description 05/22/2024 Lab Requisition [facility] - Main Lab [address] [facility] [place] [address] John Tamayo MD [address] [facility] [address] [place] [address] Elevated prostate specific antigen (PSA) Social History Tobacco Use Types Packs/Day Years [...] 7:45 AM EDT Office Visit Adult Medicine [facility] [place] [address] [place] [phone] Jazmín Espinal MD [address] [place], [place] documented as of this encounter Procedures Procedure Name Priority Date/Time Associated Diagnosis Comments FLUOROQUINOLONE RESISTANT GNR IDENTIFICATION AND SUSCEPTIBILITY Routine 05/22/2024 8:01 AM EST Elevated prostate specific antigen (PSA) CULTURE FLUOROQUINOLONE RESISTANT ORGANISM Routine 05/22/2024 8:01 AM EST Elevated prostate specific antigen (PSA) documented in this encounter Results * Fluoroquinolone resistant GNR identification and susceptibility (05/22/2024 8:01 AM EST) Result 1 No Fluoroquinolone Resistant GNR Detected. 05/25/2024 12:05 PM EST [facility] Swab Rectum structure / Unknown 05/22/2024 8:01 AM EST 05/22/2024 10:15 AM EST Narrative [facility] - 05/25/2024 12:05 PM EST Performed at: ??01 - [facility] [address] ??[id number] Maths Tutor: Rebecca Brizuela MD, Phone: ??[phone] us John Tamayo MD LAB MICROBIOLOGY - GENER AL ORDERABLES Final Result Performing Organization Address City/[facility]/ZIP Co de Phone Number [facility] * Culture fluoroquinolone resistant organism (05/22/2024 8:01 AM EST) Fluoroquinolone Resist GNR Cul Final report 05/25/2024 12:05 PM EST [facility] Swab Rectum structure / Unknown 05/22/2024 8:01 AM EST 05/22/2024 10:15 AM EST Narrative [facility] - 05/25/2024 12:05 PM EST Performed at: ??01 - [facility] [address] ??[id number] Maths Tutor: Rebecca Brizuela MD, Phone: ??[phone] us John Tamayo MD LAB MICROBIOLOGY - GENER AL ORDERABLES Final Result Performing Organization Address City/[facility]/ZIP Co de Phone Number [facility] documented in this encounter Visit Diagnoses Diagnosis Elevated prostate specific antigen (PSA) documented in this encounter Care Teams Arch Pad Cementer Relationship Specialty Start Date End Date Ben Crum MD [address] [place] [address] PCP - General Internal Medicine 09/12/24 documented as of this encounter
--- NOTE | 2024-10-24 10:18 | P.CONAN_ITS ---
Documented by User: Mariajose Alatorre NP 10/24/24 10:19 HPI - Anesthesia Eval Consult details Narrative: 74yo M for Spinal Cord Stimulation Trial Anesthesia Pre-Procedure Meds Is the patient on any of the following meds?: GLP1/DPP4 PMFSH Active Problems Active Problems: All Active Problems Chronic pain syndrome (Acute) Postlaminectomy syndrome (Acute) Diabetic polyneuropathy (Acute) Neuropathy (Acute) Past Medical History Medical History (Updated 10/23/24 @ 08:45 by Tamika Brown RN) Elevated PSA Glaucoma HTN (hypertension) Back pain Diabetes Surgical History Surgical History (Updated 10/23/24 @ 08:45 by Tamika Brown RN) Hx of lumbosacral spine surgery History of bilateral carpal tunnel release Social History Social History Patient Tobacco Use Status: Never used Tobacco Have you been hit, kicked, punched, or otherwise hurt by someone within the past year? If so, by whom?: No Are you DNR?: No Advance Directives: No Advance Directives Information Provided: Yes Meds Allergies Allergy/AdvReac Type Severity Reaction Status Date / Time No Known Allergies Allergy Verified 08/12/24 13:56 Home Medications ?Medication ?Instructions ?Recorded ?Confirmed ?Last Taken ?Type metformin 1,000 mg tablet 1,000 mg PO BID 06/29/21 08/12/24 10/25/24 History cyanocobalamin (vitamin B-12) 1,000 mcg PO DAILY 07/24/24 08/12/24 Unknown History 1,000 mcg tablet dulaglutide 1.5 mg/0.5 mL mg subcut 07/24/24 08/12/24 10/11/24 History subcutaneous pen injector (Trulicity) gabapentin 600 mg tablet 600 mg PO BID 07/24/24 08/12/24 10/25/24 History lisinopril 20 1 tab PO DAILY 07/24/24 08/12/24 10/25/24 History mg-hydrochlorothiazide 25 mg tablet tamsulosin 0.4 mg capsule 0.4 mg PO BEDTIME 07/24/24 08/12/24 Unknown History Exam Height,Weight and Vital Signs: Height 5 ft 9 in Weight 72.575 kg Assessment and Plan Assessment Anesthesia Assessment: Chart Reviewed Documented by User: Brian Clifton MD 10/25/24 09:46 [facility] Past Medical History Medical History (Updated 10/23/24 @ 08:45 by Tamika Brown RN) Elevated PSA Glaucoma HTN (hypertension) Back pain Diabetes Family History Family history of problems with anesthesia: No Surgical History Surgical History (Updated 10/23/24 @ 08:45 by Tamika Brown RN) Hx of lumbosacral spine surgery History of bilateral carpal tunnel release History of Problems with Anesthesia: No Social History Social History Patient Tobacco Use Status: Never used Tobacco Have you been hit, kicked, punched, or otherwise hurt by someone within the past year? If so, by whom?: No Are you DNR?: No Advance Directives: No Advance Directives Information Provided: Yes Meds Allergies Allergy/AdvReac Type Severity Reaction Status Date / Time No Known Allergies Allergy Verified 08/12/24 13:56 Home Medications ?Medication ?Instructions ?Recorded ?Confirmed ?Last Taken ?Type metformin 1,000 mg tablet 1,000 mg PO BID 06/29/21 08/12/24 10/25/24 History cyanocobalamin (vitamin B-12) 1,000 mcg PO DAILY 07/24/24 08/12/24 Unknown History 1,000 mcg tablet dulaglutide 1.5 mg/0.5 mL mg subcut 07/24/24 08/12/24 10/11/24 History subcutaneous pen injector (Trulicity) gabapentin 600 mg tablet 600 mg PO BID 07/24/24 08/12/24 10/25/24 History lisinopril 20 1 tab PO DAILY 07/24/24 08/12/24 10/25/24 History mg-hydrochlorothiazide 25 mg tablet tamsulosin 0.4 mg capsule 0.4 mg PO BEDTIME 07/24/24 08/12/24 Unknown History Exam Airway Mallampati Class: I TM Dist: <=3cm Neck ROM: Full Loose/Missing/Broken Teeth: No Heart: ok Lungs: ok Assessment and Plan Assessment Anesthesia Assessment: Anesthesia Plan Discussed Final Anesthetic Review Family History of Problems with Anesthesia: No History of Problems with Anesthesia: No NPO: Yes ASA Class: III Final Preanesthetic Review: No Changes in Pt Med Stat, Meds/Allgs Chart Reviewed, Consent Obtained/Reviewed and Anes Risks/Benef Reviewed Patient Risk: Intermediate Procedure Risk: Intermediate Anesthetic Plan Anesthetic Plan: MAC: and Agree w/ Assess. and Plan Disposition: Standard PACU
[2024-10-25] VITALS (8 sets, daily range): BP systolic 102–128; BP diastolic 61–82; PULSE 61–84; RESP 16–18; TEMP 36.2–36.9; O2SAT 98–100; BMI 23.8
--- NOTE | ~2024-10-25 | FL_ITS ---
EXAMINATION: XR FLUOROSCOPY WITH IMAGES CLINICAL INFORMATION: Spinal cord stimulation trial. COMPARISON: None available. TECHNIQUE: Fluoroscopy provided to: Dr. Peter Fluoroscopy time: 2 minutes, 16 seconds DAP: 11.850 Gycm2 Images: 3 FINDINGS: 3 fluoroscopic spot images of the lower thoracic spine during placement of spinal cord stimulator in the dorsal epidural space. Please refer to the full operative report for details. FL/FL guidance in OR IMPRESSION: Fluoroscopic guidance. Electronically signed by: Fili Koch MD 10/28/2024 04:06 PM EDT
[2024-10-25 08:06] LABS: Glucose, Whole Blood 94 mg/dL (60-115)
[2024-10-25] MEDS: Lactated Ringers 1,000 ML 100 ML IVCONT (08:13)
--- NOTE | 2024-10-25 09:23 | MHC.SHP ---
Pre-Procedural Eval Section A - 24 Hr Update-Section A only Date of Service: 10/25/24 The patient is an INPATIENT: No Changes since office visit: Yes Patient answered all questions The patient has been examined within 24 hours of the surgical procedure. The History & Physical has been completed within 30 days and I have reviewed it.: No Section B - Complete if H&P > 30 days Chief Complaint: Postlaminectomy syndrome, not elsewhere classified Details of Present Illness: as above Relevant Family History (Specify if Yes): No Relevant Social History: None Present Medications: None Medical History: Significant History (diabetes mellitus diabetic polineuropathy) History of Previous Operations: No relevant previous surgery Allergies: Allergies Allergy/AdvReac Type Severity Reaction Status Date / Time No Known Allergies Allergy Verified 08/12/24 13:56 Review of Systems Sugical H&P ROS: Negative: Constitution, Cardiovascular, Respiratory, Neurological, Psychiatric, Hem-Onc, Allergic/Immunologic, Gastrointestinal, Genitourinary, Integumentary and Eyes/Ears/Nose/Throat and Yes, Specify: Musculoskeletal (postlaminectomy syndrome) and Endocrine (DM ) Exam Surgical H&P Exam: Normal: HEENT, Normal: Heart, Normal: Lungs, Normal: Extremities, Normal: Abdomen, Normal: Skin and Normal: Neurological Plan Diagnosis/Plan: Unchanged I have reviewed the history and physical and performed a pertinent physical examination on my patient. No changes have occurred unless specified. Time Spent With Patient Time: Total time managing care of this patient today ____ minutes.
--- NOTE | 2024-10-25 11:42 | W.PM.OPN ---
Operative Note Operative Note Date of Service: 10/25/24 Narrative: Trial of spinal cord stimulator Nevro. Milan is very pleasant 74 years old male who came to the operating room for trial of spinal cord stimulator Nevro for the treatment of postlaminectomy syndrome and chronic pain syndrome. ?Preoperatively patient received ? cefazolin 2 g approximately thirty minutes before the procedure. After obtaining informed consent the patient was brought to the operating room, he was positioned prone on operating table, ASA monitor were applied and general LMA anesthesia was induced. ?Time-out was performed delineating correct site, side, the nature of the procedure, patient's allergy, preoperative antibiotic if needed.? All operating room staff was participating in OR time-out procedure. Patient's entire back was prepped with Chloraprep twice and draped with full body fenestrated laparoscopy drape.? Sterilely draped C-arm was brought over operating field and square picture of the T11, T12 , L1 vertebrae? were demonstrated on the screen.? Extensive hardware at L3, L4, L5 with rods and screws was noted on the screen. ?Attention FIRST? was concentrated on T12-L1 epidural interspace. In the projection of L2 pedicle local anesthetic mixture of ropivacaine 0.5% and lidocaine 2% one-to-one was injected forming a skin wheal. Eleven blade scalpel was used to make a savana on the skin. After the 10 cm 14 gauge introducer epidural needle was inserted through the savana and advanced to the T12-L1 epidural interspace. Loss of resistance to air technique and guitar wire were used to detect the epidural space. The needle was advancing under anterior posterior and lateral views. Epidural lead was inserted through the needle and advanced to the projection of the T8 vertebra. Unfortunately when we took the lateral view the epidural lead was positioned posteriorly only with the top 2 electrodes. The rest of the lead was located in the lateral gutter if not anteriorly. Manipulations seem to be impossible at this level because of the epidural adhesions at the T12-L1 were preventing manipulation. The decision was made to change the insertion site of the epidural leads to the T11-T12 position. In the projection of the pedicle of L1 vertebra injection of the local anesthetic mixture of ropivacaine 0.5% and lidocaine 2% one-to-one was performed. Eleven blade scalpel was used to make a savana on the skin. After that 10 cm 14 gauge introducer epidural needle was inserted through the neck and advanced to the T11-T12 interspace. Loss of resistance to air technique and guitar wire were used to locate epidural space. The needle was advancing under anterior posterior and lateral views. Epidural lead was inserted through the needle and advanced to were the projection of the T8 top vertebra. This time on the lateral view the electrode was entirely positioned in the posterior epidural space. After the attention was concentrated on the left L1 pedicle were injection of the local anesthetic mixture of lidocaine 2% and ropivacaine 0.5% one-to-one was performed forming the skin wheal. After that 10 cm 14 gauge introducer epidural needle was inserted through the savana and advanced to the T11-T12 epidural interspace this time on the left side.The needle was advancing under anterior posterior and lateral views. Loss of resistance to air technique and guitar wire were used to locate epidural space. Epidural lead was inserted through the needle and advanced to were top of T9 epidural interspace in the posterior positioned. The posterior location of the epidural space was also verified on the lateral view. After that under x-ray control both epidural needles were removed and care was taken to keep the epidural leads in place. The anchoring devices were dislodged on the leads and advanced to the level of the skin.? The anchoring devices were sutured with two 0-0 ?Silk sutures per each anchor to the skin of the patient. The central fixation screw of the anchor was rotated until three clicks were heard. The leads were connected to testing device.? Sterile dressing was applied to the patient's back.? The testing device was also taped to the patient's back.? the patient tolerated procedure well he was awaken and taken outside of the operating room to recovery room.
--- NOTE | 2024-10-25 11:55 | P.BOP_ITS ---
Brief Operative Note Date of Service: 10/25/24 Pre-op diagnosis: Diabetic polyneuropathy, postlaminectomy syndrome, chronic pain syndrome. Post-op diagnosis: same Procedure: Trial of Nevro SCS Implants: None per Surgeon: Elroy Peter MD Anesthesia: GLMA Was an Cutting Machine Tender Helper used for this Procedure?: No Estimated blood loss (mL): 4 Condition: stable Disposition: PACU
[2024-10-25 12:02] LABS: Glucose, Whole Blood 69 mg/dL (60-115)
[2024-10-25] MEDS: Acetaminophen 325 MG TABLET 975 MG PO (12:06)
== END 2024-10-25 12:58 | disposition home or self-care (01) ==
PROVIDERS: PCP Internal Medicine; Visit Provider Anesthesiology
PROC: (CPT 63650; principal; 2024-10-25 09:30)
DX: M96.1 Postlaminectomy syndrome, not elsewhere classified (principal); G89.4 Chronic pain syndrome; E11.42 Type 2 diabetes mellitus with diabetic polyneuropathy; I10 Essential (primary) hypertension; Z79.85 Long-term (current) use of injectable non-insulin antidiabetic drugs; Z79.84 Long term (current) use of oral hypoglycemic drugs; Z79.899 Other long term (current) drug therapy; Z98.1 Arthrodesis status; Z98.890 Other specified postprocedural states
CPT/HCPCS: 63650 ×2; 82947; C1889; C1897; J0690; J2003; J2704; J2795; J3010

== ENCOUNTER → 2024-10-25 07:05 | Outpatient (BNV) | payer MEDICARE, SELFPAY | PROVIDERS: PCP Internal Medicine; Visit Provider Anesthesiology | DX: G89.4 Chronic pain syndrome (principal); E11.40 Type 2 diabetes mellitus with diabetic neuropathy, unspecified; M96.1 Postlaminectomy syndrome, not elsewhere classified | CPT/HCPCS: 63650 ==

== ENCOUNTER 2024-10-31 14:45 | Outpatient (AMB) | payer MEDICARE, SELFPAY ==
[2024-10-31 14:56] VITALS: BP 121/71; PULSE 98; O2SAT 100; BMI 23.6
--- NOTE | 2024-10-31 14:56 | MHC.OFFVIS ---
Vital Signs 10/31/24 14:56 Height 5 ft 9 in Weight 160 lb BMI 23.6 BP 121/71 Blood Pressure Location Rt brachial Position Sitting Pulse 98 Pulse Source Pulse Oximeter Pulse Oximetry (%) 100 Oxygen Delivery Method Room Air Intake Visit Reasons: s/p scs trial - lead pull Allergies No Known Allergies Allergy (Verified 10/31/24 14:55) HPI Comments Details: Milan is back in my office for a trial of Nevro spinal cord stimulator. This device was write for him mainly for diabetic polyneuropathy treatment. He also has postlaminectomy syndrome and we were hoping that he will receive some pain relief from the devices in the lower back as well. He came today reporting that he had 80% pain improvement in the bilateral lower extremities and about 40% pain improvement in lower back. I personally believe this trial is successful. The patient told me that he needs to think about implantation. He said that he will give us a call if he decides to go for implantation of Nevro SCS. The dressing was removed and the epidural leads were exposed. The area was prepped with ChloraPrep and after that sutures were severed with 15 blade scalpel. After that the epidural leads were removed with tips intact. There were no swelling no pathological discharge no redness in the area of the insertion. Sterile dressing applied, the patient counseled about hygiene limitations postoperative period. 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 He also reports numbness in bilateral lower extremities. He reports that this pain is result of diabetes currently he reports his hemoglobin A1c number between 6 and 7, and yet his diagnose with diabetic polyneuropathy. She reports him some oral medications help his pain minimally to moderately his pain is 10/10 all day long without interruption. currently taking metformin gabapentin tamsulosin and lisinopril HCTZ. In the past he had lower back pain spinal fusion surgery. He had 3 surgeries on the back starting from 2005 and going on to 2007 and 3rd surgery in 2018 by Cayla Grijalva. He reports that there is residual left lower extremity footdrop after the surgery he received in 2005. He reports significant lower back pain related to postlaminectomy syndrome as well. He had mg performed at [facility] and MRI in 2023. He reports multiple sessions at physical therapy with [facility] and none of those were helping his pain. [facility] Medical History (Updated 10/23/24 @ 08:45 by Tamika Brown RN) Elevated PSA Glaucoma HTN (hypertension) Back pain Diabetes Surgical History (Updated 10/23/24 @ 08:45 by Tamika Brown RN) Hx of lumbosacral spine surgery History of bilateral carpal tunnel release Social History Patient Tobacco Use Status: Never used Tobacco Review of Systems Const All systems reviewed & are unremarkable except as noted in HPI and below Physical Exam Vital Signs: Last Vital Signs Pulse 98 10/31/24 14:56 BP 121/71 10/31/24 14:56 Pulse Ox 100 10/31/24 14:56 Oxygen Delivery Method Room Air 10/31/24 14:56 BMI result Body Mass Index 23.6 Const General: no acute distress, well developed, alert and awake Orientation/consciousness: patient oriented x3 Resp Effort & Inspection: normal respiratory effort, able to speak in complete sentences, normal respiratory pattern, no audible wheezes, no cough, no grunting and not labored Cardio Other: No lower extremity edema Jugular venous distension: no JVD GI Inspection: Yes normal to inspection Back/Spine/Pelvis Other: On inspection there is a scar projection of L3, L4, L5 and probably S1 midline area the patient is back the scar is very well-healed. Skin Other: callused feet, dry skin bilateral lower extremities, reports numbness in bilateral lower extremities absence of the sensation, painful pins and needle sensation. Neuro General: patient oriented x3, gait normal, tone normal, moves all extremities and Normal light touch and pain sensation Motor exam (neuro): 5/5 motor strength present throughout Assessment & Plan Assessment & Plan (1) Diabetic polyneuropathy: Code(s): E11.42 - Type 2 diabetes mellitus with diabetic polyneuropathy Category: Medical (2) Postlaminectomy syndrome: Code(s): M96.1 - Postlaminectomy syndrome, not elsewhere classified Category: Medical (3) Chronic pain syndrome: Code(s): G89.4 - Chronic pain syndrome Category: Medical Plan In my opinion the trial of Nevro SCS was very successful. See discussion as above. However patient was not ready to schedule an appointment for implantation. He stated that he will give us a call to inform us when he will be ready. Epidural leads were removed with tips intact. Hygiene limitation counseling was provided. Coding Level of Care Code Est Pt Level 3 (67362) Diagnoses Diabetic polyneuropathy E11.42 Postlaminectomy syndrome M96.1 Chronic pain syndrome G89.4
--- OUTSIDE RECORDS SUMMARY | 2024-10-31 16:43 | XMS_ITS | Clinical Summary ---
Author Organization [facility] Address [address] [place] [address] Care Team Providers Care Plywood Patcher Name Role Phone Ari Yates MD Primary [...] age to complete this topic Care Teams Plywood Patcher Relationship Specialty Start Date End Date Ari Yates MD PCP - General Internal Medicine 07/09/18
--- OUTSIDE RECORDS SUMMARY | 2024-10-31 16:43 | XMS_ITS | Encounter Summary ---
Author Organization [facility] Address [address] [place] [address] Care Team Providers Care Form Grader Name Role Phone Ben Crum MD Primary Care Provider [phone] Encounter Details Date Type Department Care Team (Late Contact Info) Description 05/23/2024 Lab Requisition [facility] - Main Lab [address] [facility] [place] [address] Alessio Hernandez MD [address] [place] [id number] Social History Tobacco Use Types Packs/Day Years [...] 7:45 AM EDT Office Visit Adult Medicine [facility] [place] [address] [place] [phone] Jazmín Espinal MD [address] [place], [place] documented as of this encounter Visit Diagnoses Not on filedocumented in this encounter Care Teams Form Grader Relationship Specialty Start Date End Date Ben Crum MD [address] [place] [id number] PCP - General Internal Medicine 09/12/24 documented as of this encounter
--- OUTSIDE RECORDS SUMMARY | 2024-10-31 16:43 | XMS_ITS | Encounter Summary ---
Author Organization [facility] Address [address] [place] [address] Care Team Providers Care Leather Colorer Name Role Phone Bne Crum MD Primary Care Provider [phone] Encounter Details Date Type Department Care Team (Late Contact Info) Description 05/22/[address] [facility] - Main Lab [address] [facility] [place] [address] John Tamayo MD [address] [facility] [address] [place] [address] Elevated prostate specific antigen (PSA) Social History [...] 7:45 AM EDT Office Visit [place] [facility] [address] [place] [phone] Jazmín Espinal MD [address] [place], [place] documented as of this encounter Procedures [...] PM EST Performed at: ??01 - [facility] [address] ??[id number] Cloth Dyeing Range Tender: Rebecca Brizuela MD, Phone: ??[phone] us John Tamayo MD LAB MICROBIOLOGY - GENER AL ORDERABLES Final Result Performing Organization Address City/[facility]/ZIP Co de Phone Number [facility] * Culture fluoroquinolone resistant organism (05/22/2024 8:01 AM EST) Fluoroquinolone Resist GNR Cul Final report 05/25/2024 12:05 PM EST [facility] Swab Rectum structure / Unknown 05/22/2024 8:01 AM EST 05/22/2024 10:15 AM EST Narrative [facility] - 05/25/2024 12:05 PM EST Performed at: ??01 - [facility] [address] ??[id number] Cloth Dyeing Range Tender: Rebecca Brizuela MD, Phone: ??[phone] us John Tamayo MD LAB MICROBIOLOGY - GENER AL ORDERABLES Final Result Performing Organization Address City/[facility]/ZIP Co de Phone Number [facility] documented in this encounter Visit Diagnoses Diagnosis Elevated prostate specific antigen (PSA) documented in this encounter Care Teams Leather Colorer Relationship Specialty Start Date End Date Ben Crum MD [address] [place] [address] PCP - General Internal Medicine 09/12/24 documented as of this encounter
--- OUTSIDE RECORDS SUMMARY | 2024-10-31 16:43 | XMS_ITS | Clinical Summary ---
Author Organization [address] Address [address] [place] [phone] Phone Care Team Providers Care Date Night Caregiver Name Role Phone Ben Crum MD Primary Care Provider [phone] Allergies No known active allergies Medications blood sugar diagnostic (FreeStyle Lite Strips) test strip TEST BLOOD SUGAR TWICE DAILY 05/24/20 Active lancets 33 gauge misc TEST BLOOD SUGAR TWICE DAILY AND NEEDED 05/24/20 Active insulin glargine (Lantus Solostar U-100 Insulin) [...] Problem Noted Date Diagnosed Date Prostate cancer ([facility] V24, [facility] V28) 10/10 Cancer Staging:Clinical:Stage IIIA(cT2c, cN0, cM0, [...] Microalbuminuria 01/30/2017 Diabetes mellitus with neuro uday ([facility] V24, [facility] V28) 11/06/2013 Glaucoma 11/06/2013 Hypertension 10/09/2013 Encounters Date Type Department Care Team Description 10/15/2024 Telephone [facility] Radiation Oncology [address] [place] [phone] Karo Begum [place] 10/10/2024 1:19 PM EDT - 10/10/2024 11:59 PM EDT Hospital Encounter [facility] Radiation Oncology [address] [place] [phone] Discharge Disposition: Home or Self Care 10/10/2024 1:15 PM EDT - 10/10/2024 11:59 PM EDT Hospital Encounter [facility] Radiation Oncology [address] [place] [phone] Ida Novoa MD Prostate cancer ([facility] V24, [facility] V28) Discharge Disposition: Home or Self Care 10/03/2024 Telephone [facility] Radiation Oncology [address] [place] [phone] Liliya Ponce MA 09/12/2024 Telephone [facility] Radiation Oncology [address] [place] [phone] Liliya Ponce [place] 08/16/2024 11:00 AM EST - 08/16/2024 11:59 PM EST Hospital Encounter [facility] PET Scan [address] [place] [phone] Malignant neoplasm of prostate ([facility] V24, [facility] V28) Discharge Disposition: Home or Self Care [...] (diabetes mellitus), type 2 with neurological complications ([facility] V24, [facility] V28) 11/06/2013 DX:DM (diabetes mellitus), t ype 2 with neurological complications ([facility]) Microalbuminuria 01/30/2017 DX:Microalbumin uria Polyneuropathy 07/12/2018 DX:Polyneuropath y Carpal tunnel syndrome 07/12/2018 DX:Carpal tunnel syndrome; COMMENT: left Vitamin B 12 deficiency DX:Vitam in B 12 deficiency Vitamin D deficiency DX:Vitamin D deficiency Cancer ([facility] V24, [facility] V28) Prostate cancer ([facility] V24 , [facility] V28) Family History Medical History Relation Name [...] 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 Not on file Not [...] Upcoming Encounters Date Type Department Care Team ([facility] st Contact Info) Description 11/22/2024 7:45 AM EDT Office Visit Adult Medicine [address] [place] [phone] Jazmín Espinal MD [address] [facility] [place] [address] Health Maintenance Due Date Last Done Comments [...] Routine 10/10/2024 3:35 PM EDT Prostate cancer ([facility] V24, [facility] V28) PET CT SKULL TO MID THIGH INITIAL Routine 08/16/2024 12:20 PM EST Malignant neoplasm of prostate ([facility] V24, [facility] V28) HEMOGLOBIN A1C Routine 07/13/2022 ANNUAL BMP BLOOD TEST Routine 10/19/2021 LIPID PANEL Routine 10/19/2021 URINE ALBUMIN CREATININE RATIO Routine 05/15/2020 HEPATITIS C SCREENING Routine 10/25/2013 from Last 3 Months or Most Recently Relevant to Health Maintenance Results * (ABNORMAL) Prostate specific antigen diagnostic (10/10/2024 3:35 PM EDT) PSA 16.79(H) 0.00 - 4.00 ng/mL LAB CHEMISTRY METHOD 10/10/2024 6:09 PM EDT [facility] Blood Venous blood specimen / Unknown Venipuncture / Unknown 10/10/2024 3:35 PM EDT 10/10/2024 4:39 PM EDT Narrative [facility] - 10/10/2024 6:09 PM EDT The Siemens Advia Centaur Chemiluminescent Immunoassay is used. Results obtained with different assay methods or kits cannot be used interchangeably. Results cannot be interpreted as absolute evidence of the presence or absence of malignant disease. us Ida Novoa MD LAB BLOOD ORDERABLES Final R esult [facility] [address] [place] [address], * PET CT Skull to Mid Thigh [...] Signed Date: 08/20/2024 07:06 ET Workstation ID: [id number] Transcribed By: Self Edit Transcribed Date: 08/20/2024 [...] not designed to produce and cannot replace [id number]-[id number]-art true diagnostic CT examination with specific protocols. [...] reconstructed in axial, coronal, sagittal planes at the[employer] workstation with fused data from both the PET imaging study andattenuation correction CT study. Please note, CT imaging utilized strictlyfor attenuation correction and anatomic localization: CT not designed toproduce and cannot replace [id number]-[id number]-oss-art true diagnostic CT examinationwith specific protocols. Standardized [...] Signed Date: 08/20/2024 07:06 ET Workstation ID: [id number] Transcribed By: Self Edit Transcribed Date: 08/20/2024 06:16 ET Result [facility] John Tamayo MD IMG NM PROCEDURES Final Result * (ABNORMAL) Hemoglobin A1c (07/13/2022) [facility] Hemoglobin A1C 7.0(A) <=6.5 % Blood Venous blood specimen / Unknown Result [facility] Historical Provider LAB BLOOD ORDERABLES Deirdre l Result * Annual BMP Blood Test (10/19/2021) Pathologist [facility] Annual BMP Blood Test abstracted Result [facility] Provider HEALTH MAINTENANCE Final Result * (ABNORMAL) Lipid panel (10/19/2021) [facility] LDL/HDL Ratio 3 0 - 4 Triglycerides 50 0 - 150 mg/dL Cholesterol 186 0 - 200 mg/dL HDL 66 >=40 mg/dL LDL Cholesterol 110(A) 0 - 100 mg/dL Blood Venous blood specimen / Unknown Result [facility] Historical Provider LAB BLOOD ORDERABLES Deirdre l Result * Urine Albumin Creatinine Ratio (05/15/2020) Urine Albumin Creatinine Ratio abstracted us Historical Provider HEALTH MAINTENANCE Final Result * Hepatitis C Screening (10/25/2013) Hepatitis C Screening abstracted us Historical Provider HEALTH MAINTENANCE Final Result from Last 3 Months or Most Recently Relevant to Health Maintenance Insurance MEDICAID [place] Care Teams Date Night Caregiver Relationship Specialty Start Date End Date Ben Crum MD [facility] [place] [address] PCP - General Internal Medicine 09/12/24
== END 2024-10-31 15:19 | disposition home or self-care (01) ==
PROVIDERS: PCP Internal Medicine; Visit Provider Anesthesiology
DX: E11.42 Type 2 diabetes mellitus with diabetic polyneuropathy (principal); M96.1 Postlaminectomy syndrome, not elsewhere classified; G89.4 Chronic pain syndrome
CPT/HCPCS: 99024

== ENCOUNTER → 2024-10-31 14:45 | Outpatient (BNVA) | payer MEDICARE, SELFPAY | PROVIDERS: PCP Internal Medicine; Visit Provider Anesthesiology | DX: E11.42 Type 2 diabetes mellitus with diabetic polyneuropathy (principal); M96.1 Postlaminectomy syndrome, not elsewhere classified; G89.4 Chronic pain syndrome | CPT/HCPCS: 99212 ==